=== PATIENT | male | born 1935 | race Caucasian/White ===

== ENCOUNTER → 2020-07-01 | Outpatient (CLI) | payer MEDICARE, OTHER ==
[~2020-07-01] MED LIST: ACET-2065 PO; ACET325T14 PR; ALBU18HF IH; ALBU18HF INH; AMIO200T PO; AMIO200T42 PO; AMOX1TAB64 PO; ASPI-496 PO; ATOR40TA PO; CEFD300C37 PO; CEPH-368 PO; CHOL100012 PO; DEXT4TAB31 PO; DICL500C PO; DILT-86 PO; DOCU-131 PO; ENOX40SY4 SQ; FINA1TAB16 PO; FINA5TAB4 PO; FLUT16SP2 INH; FLUT1DIS3 INH; FURO-92 PO; FURO-93 PO; FURO20TA3 PO; HYDR-1067 PO; HYDR-3237 PO; INSU100C5 SQ-INSULIN; IPRA15SP2 INH; LEVE500T53 PO; LEVO500T47 PO; LORA1TAB PO; LOSA25TA25 PO; LOSA50TA14 PO; MAGN311T PO; MAGN400O7 PO; METF500T PO; METF500T17 PO; METH4TAB2 PO; MULT-26 PO; ONDA4SOL2 IVPush; OXYC1TAB14 PO; OXYC5CAP2 PO; POTA10TA6 PO; ROSU20TA2 PO; TAMS-11 PO; TAMS0.4C2 PO; VERA120T PO; VERA120T13 PO; VERA40TA PO; VERA80TA PO; VERA80TA25 PO; WARF7.5T PO
== END | disposition home or self-care (01) ==
LOC: CFH 12:32
PROVIDERS: ATTEND Physician Assistant Medical
DX: I08.3 Combined rheumatic disorders of mitral, aortic and tricuspid valves (principal); I11.9 Hypertensive heart disease without heart failure; I42.9 Cardiomyopathy, unspecified
CPT/HCPCS: 93306